=== PATIENT | male | born 1990 | race Caucasian/White ===

== ENCOUNTER 2018-04-02 11:39 | Emergency (ER) | payer OTHER, BC, SELFPAY ==
[2018-04-02 11:41] VITALS: BP 136/88; PULSE 99; RESP 16; TEMP 37.4; O2SAT 98; BMI 19.8
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
[2018-04-02] MEDS: Diphth,Pertuss(Acell),Tet Vac 0.5 ML Vial IM (12:33)
== END 2018-04-02 13:20 | disposition home or self-care (01) ==
PROVIDERS: Emergency Provider Emergency Medicine; Family Provider Family Medicine; PCP Family Medicine
DX: S06.0X0A Concussion without loss of consciousness, initial encounter (principal); S01.01XA Laceration without foreign body of scalp, initial encounter; W20.8XXA Other cause of strike by thrown, projected or falling object, initial encounter; Y93.9 Activity, unspecified; Y92.89 Other specified places as the place of occurrence of the external cause; Y99.9 Unspecified external cause status; Z23 Encounter for immunization
CPT/HCPCS: 12002; 90471; 90715; 99282

== ENCOUNTER 2019-02-20 14:11 | Emergency (ER) | payer BC, SELFPAY ==
[2019-02-20 14:12] VITALS: BP 173/83; PULSE 120; RESP 18; TEMP 36.5; O2SAT 100; BMI 19.9
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
[2019-02-20 16:14] VITALS: RESP 18
--- NOTE | 2019-02-20 17:05 | ED.DEP ---
ED Disposition - Plan for ED Patient: Instructions: ED Concussion, ED Laceration Scalp Stitch Or Stap Referrals: Linh Uriarte [Primary Care Provider] -
[2019-02-20 17:07] VITALS: BP 132/70; PULSE 78; O2SAT 100
== END 2019-02-20 17:23 | disposition home or self-care (01) ==
PROVIDERS: Emergency Provider Emergency Medicine; Family Provider Family Medicine; PCP Family Medicine
DX: S01.01XA Laceration without foreign body of scalp, initial encounter (principal); M48.54XA Collapsed vertebra, not elsewhere classified, thoracic region, initial encounter for fracture; S40.211A Abrasion of right shoulder, initial encounter; W20.8XXA Other cause of strike by thrown, projected or falling object, initial encounter; Y93.9 Activity, unspecified; Y92.89 Other specified places as the place of occurrence of the external cause; Y99.8 Other external cause status; Z72.0 Tobacco use
CPT/HCPCS: 12004; 70450; 71250; 72125; 99282; A4216

== ENCOUNTER 2020-07-17 22:04 | Emergency (ER) | payer BC, SELFPAY ==
[2019-11-02 13:28] VITALS: BMI 19.9
[2020-07-17 22:10] VITALS: BP 136/93; PULSE 117; RESP 16; TEMP 37.1; O2SAT 98; BMI 19.6
[2020-07-17 23:15] VITALS: RESP 16
--- NOTE | 2020-07-17 23:24 | EKG12_ITS ---
Test Reason : [facility] [place] Blood Pressure : / mmHG Vent. Rate : 092 BPM Atrial Rate : 092 BPM P-R Int : 152 ms QRS Dur : 088 ms QT Int : 328 ms P-R-T Axes : 070 079 067 degrees QTc Int : 405 ms Normal sinus rhythm Normal ECG Confirmed by FLORES DUTTON, AURELIO ([id number]), news assignment editor [place] RAMSEY ([id number]) on 07/19/2020 1:51:35 PM Referred By: SHAYLA Confirmed By:AURELIO TANNER MD
[2020-07-18] VITALS (10 sets, daily range): BP systolic 116–139; BP diastolic 71–97; PULSE 72–83; RESP 14–16; O2SAT 97–98
[2020-07-18 00:33] LABS: ALB/GLOB Ratio 1.1 RATIO (0.9-2.4); AST(SGOT) 32 U/L (15-37); Alanine Aminotransfer ALT/SGPT 36 U/L (16-61); Albumin, Serum 3.9 g/dL (3.2-5.0); Alkaline Phosphatase 96 U/L (45-117); Anion Gap 10 (5-15); BUN 14 mg/dL (7-18); Calcium,Total 9.2 mg/dL (8.5-10.1); Chloride 107 mmol/L (98-107); Creatinine, Serum 0.88 mg/dL (0.70-1.30); EST Glomerular Filtration Rate 109 mL/min (>60); Est Glom Filt Rate - Afr Amer 131 mL/min (>60); Estimated Creatinine Clearance 104.69 ml/min; Globulin 3.5 g/dL (2.2-4.2); Glucose 101 mg/dL (74-106); Potassium 3.7 mmol/L (3.5-5.1); Protein, Total 7.4 g/dL (6.4-8.2); Sodium Level 143 mmol/L (136-145)
[2020-07-18 00:50] LABS: Absolute Lymphocyte Count 1.38 X10^3/uL (0.83-4.51); Absolute Neutrophil Count 7.3 X10^3/uL (2.0-7.7); Basophil# 0.05 X10^3/uL; Basophil% 0.5 % (0-1); Eosinophil# 0.14 X10^3/uL; Eosinophils% 1.4 % (0-5); Hematocrit 44.2 % (40-54); Hemoglobin 14.4 g/dL (13.0-16.5); Lymphocyte # 1.38 X10^3/ul (4.0); Lymphocyte % 13.8 % (19-41); Mean Corp Hgb Conc 32.6 g/dL (32-36); Mean Corpuscular Hgb 31.2 pg (27.0-32.0); Mean Corpuscular Volume 95.9 fL (80-94); Mean Platelet Vol. 11.1 fl (6.2-12.0); Monocyte# 1.12 X10^3/uL; Monocyte% 11.2 % (0-10); NRBC Flagged by Analyzer 0 % (0-5); Neutrophil # 7.26 X10^3/uL (2.7-7.7); Neutrophil % 72.9 % (47-70); POSITIVE COUNT YES; Platelet Count 158 K/mm3 (150-450); RBC Distribution Width CV 12.8 % (11.6-14.6); RBC Distribution Width SD 45.6 fl (35.1-43.9); Red Blood Count 4.61 M/mm3 (4.6-6.2)
[2020-07-18 00:51] LABS: Differential Indicated SCAN CRITERIA MET
[2020-07-18 00:52] LABS: Amphetamine Urine VISTA NEGATIVE (<1000 ng/mL); Barbiturate Urine VISTA NEGATIVE (< 200 ng/mL); Benzodiazepine Urine VISTA NEGATIVE (< 200 ng/mL); Cocaine Urine VISTA NEGATIVE (< 300 ng/mL); Ecstacy Urine VISTA NEGATIVE (< 500 ng/mL); Methadone Urine VISTA NEGATIVE (< 300 ng/mL); PCP Urine VISTA NEGATIVE (< 25 ng/mL); THC Urine VISTA NEGATIVE (< 50 ng/mL); Vista UDS pH Range 6
[2020-07-18 01:57] LABS: Differential Comment SCANNED
--- NOTE | 2020-07-18 05:52 | ED.VIS.GEN ---
History of Present Illness Chief Complaint: Suicidal Informant: Patient Narrative: 30-year-old male presenting with police after making several statements that he wanted to kill himself. He was banging his head on a car he was so angry. He states that he has not been able to see his kids for months due to a restraining order placed on him by his ex-. This is making him depressed. He states he is never made a suicide attempt. He said he does not have a specific plan. He did state he sustained a laceration to the forehead from banging his head. He does not have dizziness, lightheadedness, nausea, visual changes. Past Medical History - Allergies and Home Meds Allergies/Adverse Reactions: Allergies No Known Allergies Allergy (Verified 07/17/20 22:25) Primary Care Physician: Linh Uriarte MD [Primary Care Provider] - Past Medical History: - - Denies significant medical history Surgical History: noncontributory Lives: Alone Smoking Status: Current every day smoker Alcohol: Occasional Drugs: None Review of Systems General: Denies: Chills, Fever, Sweats Eyes: Reports: Visual changes - left ENT: Denies: Rhinorrhea, Sore throat Cardiovascular: Denies: Chest pain, Palpitations Respiratory: Denies: Dyspnea, Cough, Dyspnea on exertion Genitourinary: Denies: Dysuria, Hematuria, Frequency Musculoskeletal: Denies: Back pain, Extremity Pain Skin: Reports: - - 1 cm superficial laceration on the forehead Neurological: Denies: Headache, Weakness Psych: Reports: Depression, Suicidal thoughts, Suicidal ideations Physical Exam Vital Signs/Narrative: Vital Signs Pulse Resp BP Pulse Ox 07/18/20 05:00 14 07/18/20 04:12 16 07/18/20 03:30 16 07/18/20 02:45 83 16 116/71 97 Inital Vital Signs reviewed: Yes General: Well nourished, Well developed Head: Normocephalic, - - 1 cm superficial laceration on the forehead Eyes: Perrl, EOMI ENT: Moist mucous membranes, No rhinorrhea Cardiovascular: Regular rate, Regular rhythm Respiratory: No distress, CTA bilaterally Abdomen: Soft, Nontender Extremities: Nontender, No edema Skin: - - Laceration to forehead superficial 1 cm no active bleeding Neurological: Alert, Oriented x3 Psychological: Depressed, - - Admits to suicidal ideation Diagnostic/Tx/Re-eval Laboratory Data 07/17/20 07/17/20 07/17/20 22:19 23:40 23:46 WBC 10.0 RBC 4.61 Hgb 14.4 Hct 44.2 MCV 95.9 H MCH 31.2 MCHC 32.6 RDW Std Deviation 45.6 H RDW Coeff of Jaylen 12.8 Plt Count 158 MPV 11.1 Immature Gran % (Auto) 0.200 Neut % (Auto) 72.9 H Lymph % (Auto) 13.8 L [place] % (Auto) 11.2 H Eos % (Auto) 1.4 Baso % (Auto) 0.5 Absolute Neuts (auto) 7.3 Absolute Lymphs (auto) 1.38 Nucleated RBC % 0 Differential Comment SCANNED Sodium Potassium Chloride Carbon Dioxide Anion Gap BUN Creatinine Estim Creat Clear Calc Est GFR (MDRD) Af Amer Est GFR (MDRD) Non-Af BUN/Creatinine Ratio Glucose Calcium Total Bilirubin AST ALT Alkaline Phosphatase Total Protein Albumin Globulin Albumin/Globulin Ratio Urine Opiates Screen NEGATIVE Urine Methadone Screen NEGATIVE Ur Barbiturates Screen NEGATIVE Ur Phencyclidine Scrn NEGATIVE Ur Amphetamines Screen NEGATIVE U Methamphetamin-MDMA NEGATIVE U Benzodiazepines Scrn NEGATIVE Urine Cocaine Screen NEGATIVE U Cannabinoids Screen NEGATIVE Ur Drug Screen Comment Ethyl Alcohol COVID-19 ([facility]) Not Detected 07/17/20 07/17/20 07/18/20 23:46 23:46 05:10 WBC RBC Hgb Hct MCV MCH MCHC RDW Std Deviation RDW Coeff of Jaylen Plt Count MPV Immature Gran % (Auto) Neut % (Auto) Lymph % (Auto) [place] % (Auto) Eos % (Auto) Baso % (Auto) Absolute Neuts (auto) Absolute Lymphs (auto) Nucleated RBC % Differential Comment Sodium 143 Potassium 3.7 Chloride 107 Carbon Dioxide 26.0 Anion Gap 10 BUN 14 Creatinine 0.88 Estim Creat Clear Calc 104.69 Est GFR (MDRD) Af Amer 131 Est GFR (MDRD) Non-Af 109 BUN/Creatinine Ratio 16.0 Glucose 101 Calcium 9.2 Total Bilirubin 0.30 AST 32 ALT 36 Alkaline Phosphatase 96 Total Protein 7.4 Albumin 3.9 Globulin 3.5 Albumin/Globulin Ratio 1.1 Urine Opiates Screen Urine Methadone Screen Ur Barbiturates Screen Ur Phencyclidine Scrn Ur Amphetamines Screen U Methamphetamin-MDMA U Benzodiazepines Scrn Urine Cocaine Screen U Cannabinoids Screen Ur Drug Screen Comment Ethyl Alcohol 194.0 30.0 COVID-19 ([facility]) - Rhythm Strip Rhythm Strip: Sinus Rhythm Rate: 92 - Medical Decision Making 30-year-old male presenting with suicidal ideation. He states this is due to not being able to see his children. He has a superficial laceration to the forehead that he does not want to be prepared. Patient has no previous attempts, does not have a plan. He refused to tell me if he was drinking alcohol tonight but he is was intoxicated. Patient's lab work is otherwise unremarkable. On his alcohol level came down counseling center was consulted. He felt that he was evasive answering and they did not feel that they could contract for safety with him. Is medically cleared. Given this the patient will be admitted to an inpatient facility. Impression: 1. Suicidal ideation ED Disposition - Plan for ED Patient: Referrals: Linh Uriarte MD [Primary Care Provider] -
--- NOTE | 2020-07-18 07:27 | NURSING ---
JESÚS, CRISIS, CALLED. CHART WAS FAXED TO [facility]
[2020-07-18] MEDS: Nicotine Polacrilex 2 MG GUM PO (08:00)
--- NOTE | 2020-07-18 08:21 | NURSING ---
WON COX, CALLED [facility] ASKING FOR : NOTE FROM STATING PATIENT IS MEDICALLY CLEARED : COPY OF THE PINK SLIP : PATIENT TO FILL OUT COVID FORM AND BE FAXED BACK FAX NUMBER [phone]
--- NOTE | 2020-07-18 08:45 | NURSING ---
1029 FAXED PAPERS TO [facility]
--- NOTE | 2020-07-18 09:07 | NURSING ---
[facility] [address] GARCIA NURSE TO NURSE [phone]
--- NOTE | 2020-07-18 09:33 | NURSING ---
0913 CALLED [facility], ETA IS 75 MIN
--- NOTE | 2020-07-18 10:12 | ED.RN ---
attempted to call nurse to nurse. no staff available at this time. name and number left. will call back
--- NOTE | 2020-07-18 11:04 | NURSING ---
CALLED [facility], TALKED TO ALISON. ETA IS 20 MIN
== END 2020-07-18 11:48 ==
LOC: ED 22:48
PROVIDERS: Emergency Provider Student in an Organized Health Care Education/Training Program; PCP Family Medicine
DX: R45.851 Suicidal ideations (principal); F17.200 Nicotine dependence, unspecified, uncomplicated
CPT/HCPCS: 36415; 80053; 80307; 80320; 85025; 87635; 93005; 99285; G0480; U0002

== ENCOUNTER 2020-08-16 17:17 | Emergency (ER) | payer SELFPAY ==
[2020-08-16 17:19] VITALS: BP 146/94; PULSE 103; RESP 16; TEMP 36.2; O2SAT 100; BMI 19.9
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
[2020-08-16 18:39] LABS: Absolute Lymphocyte Count 1.57 X10^3/uL (0.83-4.51); Absolute Neutrophil Count 5.9 X10^3/uL (2.0-7.7); Basophil# 0.05 X10^3/uL; Basophil% 0.6 % (0-1); Eosinophil# 0.23 X10^3/uL; Eosinophils% 2.7 % (0-5); Hematocrit 46.9 % (40-54); Hemoglobin 15.1 g/dL (13.0-16.5); Lymphocyte # 1.57 X10^3/ul (4.0); Lymphocyte % 18.7 % (19-41); Mean Corp Hgb Conc 32.2 g/dL (32-36); Mean Corpuscular Hgb 30.5 pg (27.0-32.0); Mean Corpuscular Volume 94.7 fL (80-94); Mean Platelet Vol. 10.4 fl (6.2-12.0); Monocyte# 0.64 X10^3/uL; Monocyte% 7.6 % (0-10); NRBC Flagged by Analyzer 0 % (0-5); Neutrophil % 70.3 % (47-70); Platelet Count 232 K/mm3 (150-450); RBC Distribution Width CV 11.9 % (11.6-14.6); Red Blood Count 4.95 M/mm3 (4.6-6.2); White Blood Count 8.4 K/mm3 (4.4-11.0)
[2020-08-16 18:43] LABS: Anion Gap 7 (5-15); BUN 8 mg/dL (7-18); Chloride 107 mmol/L (98-107); Creatinine, Serum 0.89 mg/dL (0.70-1.30); EST Glomerular Filtration Rate 107 mL/min (>60); Est Glom Filt Rate - Afr Amer 129 mL/min (>60); Estimated Creatinine Clearance 105.12 ml/min; Glucose 88 mg/dL (74-106); Potassium 3.6 mmol/L (3.5-5.1); Sodium Level 141 mmol/L (136-145)
[2020-08-16 19:28] LABS: Amphetamine Urine VISTA NEGATIVE (<1000 ng/mL); Barbiturate Urine VISTA NEGATIVE (< 200 ng/mL); Benzodiazepine Urine VISTA NEGATIVE (< 200 ng/mL); Cocaine Urine VISTA NEGATIVE (< 300 ng/mL); Ecstacy Urine VISTA NEGATIVE (< 500 ng/mL); Methadone Urine VISTA NEGATIVE (< 300 ng/mL); PCP Urine VISTA NEGATIVE (< 25 ng/mL); THC Urine VISTA NEGATIVE (< 50 ng/mL); Vista UDS pH Range 5
--- NOTE | 2020-08-16 20:01 | NURSING ---
CALLED CRISIS WAITING FOR KOFI TO CALL BACK
[2020-08-16 20:09] VITALS: RESP 16
--- NOTE | 2020-08-16 21:09 | ED.RN ---
Addendum entered by Rolanda Martínez 08/16/20 21:13: correction: counselor did not talk with pt prior to pt leaving. aware. Original Note: pt no longer in room. this RN paged Lety at the counseling center - she had talked with patient on phone.
== END 2020-08-16 21:14 | disposition left against medical advice (07) ==
LOC: ED 18:01
PROVIDERS: Emergency Provider Emergency Medicine; PCP Family Medicine
DX: Z00.00 Encounter for general adult medical examination without abnormal findings (principal); F17.200 Nicotine dependence, unspecified, uncomplicated
CPT/HCPCS: 36415; 80048; 80307; 80320; 85025; 99282; G0480